=== PATIENT | male | born 1960 ===

== ENCOUNTER 2019-11-28 09:09 | Outpatient (CLI) | payer OTHER | END 2019-11-28 09:10 | disposition home or self-care (01) | LOC: SONOGRAMA 09:09 | DX: D29.4 Benign neoplasm of scrotum (principal) ==

== ENCOUNTER 2022-09-19 16:03 | Outpatient (CLI) | payer OTHER | END 2022-09-19 16:10 | disposition home or self-care (01) | LOC: RAD 16:03 | PROVIDERS: ATTEND General Practice | DX: I10 Essential (primary) hypertension (principal) ==

== ENCOUNTER 2023-12-11 15:00 | Outpatient (CLI) | payer OTHER | END 2023-12-11 15:08 | disposition home or self-care (01) | LOC: RAD 15:00 | PROVIDERS: ATTEND General Practice | DX: M25.561 Pain in right knee (principal) ==